=== PATIENT | male | born 1995 | race Asian ===

== ENCOUNTER 2021-03-20 01:19 | Emergency (ER) | payer OTHER | END 2021-03-20 02:19 | disposition home or self-care (01) | LOC: ED 01:19 | DX: H92.01 Otalgia, right ear (principal); T16.1XXA Foreign body in right ear, initial encounter; X58.XXXA Exposure to other specified factors, initial encounter; Y92.89 Other specified places as the place of occurrence of the external cause | CPT/HCPCS: 99282 ==